=== PATIENT | female | born 1985 | race Caucasian/White ===

== ENCOUNTER 2021-07-20 07:30 | Inpatient (IN) ==
[2021-07-20] MEDS ORDERED: OXYTOCIN 30 UNITS/500 ML BAG IV PRN ×3 (07:46→19:58)
[2021-07-20 08:12] LABS: Hematocrit (blood only) 34.2 % (37-47); Hemoglobin 11.4 g/dL (12.0-16.0); Mean Corpuscular Hgb Conc 33.3 g/dL (32-36); Mean Platelet Volume 10.6 fL (7.4-10.4); Platelet Count 238 K/uL (130-400); RDW Coefficient of Variation 14.5 % (11.5-14.5); RDW Standard Deviation 44.7 fL (36.4-46.3); Red Blood Count 4.07 M/uL (4.2-5.4); White Blood Count 11.21 K/uL (4.8-10.8)
--- NOTE | 2021-07-20 09:27 | History & Physical Report ---
Date of Service July 20, 2021 Assessment & Plan (1) Supervision of normal intrauterine in multigravida: Plan: Admit to L&D. Pitocin. EFM/toco. Labs. Admission and Anticipated Discharge Date Admission Date: July 20, 2021 History of Present Illness Chief Complaint: IOL Primary Care Provider: NO PCP 35yo @ 39 2, IOL for h/o large baby. Cortez bulb placed last night, still in place this AM. +FM, no VB, no LOF. No ctx. complicated by: History of 8lb5oz baby with fracture of arm at delivery Offered primary C/Sec with this - undecided so far. per note written 02/06/21--plans growth us 32wks and possibly 36wks to assess size of baby to help her decide delivery plan SCHEDULED FOR 07/20 IOL same day Allergies Allergy/AdvReac Type Severity Reaction Status Date / Time grass pollen-perennial rye, Allergy Unknown STUFFY NOSE Verified 07/17/21 13:41 standar No Known Drug Allergies Allergy Unknown NO KNOWN Verified 07/17/21 13:41 DRUG ALLERGIES Home Medications Medication Instructions Recorded Confirmed Type doxylamine succinate [Unisom PO 12/16/20 07/17/21 History (doxylamine)] prenat.vits,nolan,uyv-jynu-mkbol 1 tab PO DAILY 12/16/20 07/17/21 History pyridoxine (vitamin B6) [Vitamin PO 12/16/20 07/17/21 History B-6] breast pump #1 ea 06/15/21 07/17/21 Rx Patient History Medical History (Updated 05/14/21 @ 14:56 by Tete Stein MD, FACOG) Bacterial vaginosis Surgical History (Updated 09/08/20 @ 12:42 by Veronica Velazquez MD) 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 History of dilatation and curettage History of salpingo-oophorectomy Left dermoid History of surgery on arm broken arm repair Family History (Updated 09/08/20 @ 12:39 by Veronica Velazquez MD) Grandfather (Paternal) Diabetes Denies family history of Ovarian cancer Prostate cancer Myocardial infarction Breast cancer Colorectal cancer Uterine cancer Social History (Updated 12/16/20 @ 13:57 by Audrey Anand) Smoking Status: Never smoker Hx Alcohol Use: No Hx Substance Use: No Preferred Language: Mongolian Visual Impairment: No Limitations Hearing Ability: Normal Beliefs That Will Affect Care: None marital status: marital status details: [place] (33) [phone] Current Living Situation: Spouse Current Living Situation Comment: lives with fob and daughter, no pets. current occupational status: employed current occupation: facility security officer in [email or web address] Other Information That Helps Us Care for You: No Feels Safe at Home: Yes Safety Concerns: Feels Safe At This Time Dental Care, Regularly: No Physical Activity Frequency: 3-4 Times per Week Seatbelt Use: always Assistive Devices: None Review of Systems All systems reviewed & are unremarkable except as noted in HPI & below Physical Exam Physical Exam: FHT Cat 1 Quentin no ctx SVE: cortez bulb in vagina. Cervix 4/50/-3. Constitutional: WD/WN, vitals as above Respiratory: normal respiratory effort, lungs clear to auscultation no respiratory distress Cardiovascular: Rate/Rhythm: regular rate and regular rhythm Gastrointestinal (Abdomen): Inspection/Auscultation: abdomen normal to inspection Percussion/Palpation: abdomen soft; abdomen nontender Gravid. No s/s chorio or abruption. Skin: no rashes, warm and dry Psychiatric: A+Ox3, euthymic affect Results & Data ([facility]) Vital Signs (Past 12 Hours) Vital Signs Temp Pulse Resp BP 07/20/21 08:29 36.8 C 20 07/20/21 07:48 88 119/68 Coding Level of Care Code None Diagnoses Supervision of normal intrauterine in multigravida Z34.80
[2021-07-20] MEDS: LACTATED RINGER'S 1,000 ML IV PRN ×3 (09:47→18:33)
--- NOTE | 2021-07-20 14:00 | Obstetrical Progress Note ---
Date of Service July 20, 2021 Assessment & Plan (1) Supervision of normal intrauterine in multigravida: Plan: 35 y/o at 39 2/7 wga, eIOL due to hx shoulder resulting in arm fracture VSS Fetus cat 1 Labor - now s/p arom, pit at 11 GBS neg Epidural PRN Admission and Anticipated Discharge Date Admission Date: July 20, 2021 Subjective Ctx becoming somewhat uncomfortable Physical Exam Genitourinary: Manual OB Exam: + cervical dilation 4 cm, + cervical effacement 50%, + station -2 and + amniotic fluid (AROM w/ ?thin mec stained fluid) OB Exam Monitor Tracing: + external FHT monitor used, + external uterine monitor used (q3) and + category I (130/mod/+accel/-decel) Results & Data ([facility]) Vital Signs (Past 12 Hours) Vital Signs Temp Pulse Resp BP 07/20/21 13:49 97.9 F 18 07/20/21 13:48 82 125/75 07/20/21 12:38 88 115/76 07/20/21 11:12 81 112/64 07/20/21 09:52 86 112/66 07/20/21 08:29 98.2 F 20 07/20/21 07:48 88 119/68 PG Care Time/CCT Total # of Minutes Spent Total Time Spent with Patient: Total time spent is greater than 50% in coordination of care (as documented) at patient's floor/unit and/or counseling patient: Coding Level of Care Code None Diagnoses Supervision of normal intrauterine in multigravida Z34.80
[2021-07-20] MEDS ORDERED: ePHEDrine sulfate 50 MG/ML AMP ONE (14:29)
[2021-07-20] MEDS ORDERED: BUPIVACAINE 0.25% 30 ML VIAL ONE (14:29)
[2021-07-20] MEDS ORDERED: SODIUM CHLORIDE 0.9% INJ 10 ML VIAL ONE (14:29)
[2021-07-20] MEDS ORDERED: fentaNYL 2MCG/ML ROPIVACAINE 1.25MG/ML 100 ML BAG EPI ONE (14:30)
[2021-07-20] MEDS ORDERED: fentaNYL citrate 100 MCG/2 ML VIAL ONE (14:30)
--- NOTE | 2021-07-20 14:40 | Anesthesiology Consultation ---
Date of Service July 20, 2021 Assessment & Plan (1) Encounter for pre-operative examination: Chart Review Chart Review: Acceptable Risk for Labor Epidural History Surgery Operation Date: 07/20/21 07:30 Proposed Procedures p Section in LD - Veronica Velazquez MD Height/Weight Height: 5 ft 3.5 in Weight: 99.79 kg Allergies Allergy/AdvReac Type Severity Reaction Status Date / Time grass pollen-perennial rye, Allergy Unknown STUFFY NOSE Verified 07/17/21 13:41 standar No Known Drug Allergies Allergy Unknown NO KNOWN Verified 07/17/21 13:41 DRUG ALLERGIES Medications Home Medications Medication Instructions Recorded Confirmed Last Taken breast pump #1 ea 06/15/21 07/17/21 Unknown prenat.vits,nolan,gon-ujma-ybztg 1 tab PO DAILY 07/20/21 07/20/21 07/19/21 08:00 Active Medications Generic Name Dose Route Start Last Admin Trade Name Freq PRN Reason Stop Dose Admin Oxytocin 30 units in 500 mls @ 11 mls/hr 07/20/21 07:46 07/20/21 13:15 Pitocin IV 07/22/21 07:45 0.66 units/hr .Q24H PRN 11 mls/hr Labor Induction/Augmentation Titration Protocol 0.66 UNITS/HR Lactated Ringer's 1,000 mls @ 125 mls/hr 07/20/21 07:46 07/20/21 09:47 Lr IV 07/22/21 07:45 125 mls/hr .Q8H PRN Administration L&D Protocol Protocol Past Medical History Medical History Bacterial vaginosis Past Family History Family History Grandfather (Paternal) Diabetes Denies family history of Ovarian cancer Prostate cancer Myocardial infarction Breast cancer Colorectal cancer Uterine cancer Past Surgical History Surgical History 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
[2021-07-20] MEDS ORDERED: ePHEDrine sulfate 50 MG/ML AMP IV PRN (15:53)
[2021-07-20] MEDS ORDERED: ONDANSETRON INJ 2 MG/ML 2 ML VIAL IV PRN (15:53)
[2021-07-20] MEDS ORDERED: fentaNYL 2MCG/ML ROPIVACAINE 1.25MG/ML 100 ML BAG EPI PRN (15:53)
[2021-07-20] MEDS ORDERED: NALOXONE HCL 0.4 MG/1 ML VIAL/CARP IV PRN (15:53)
[2021-07-20] MEDS ORDERED: NALOXONE HCL 1 MG in SODIUM CHLORIDE 0.9% 1000ML 1,000 ML IV PRN (15:53)
--- NOTE | 2021-07-20 17:05 | Labor Progress Brief Note ---
Date of Service July 20, 2021 Subjective Comfortable w/ epidural Assessment & Plan (1) Supervision of normal intrauterine in multigravida: Plan: 35 y/o at 39 2/7 wga, eIOL due to hx shoulder resulting in arm fracture VSS Fetus cat 1 Labor - Continue augmentation, some progression noted GBS neg Epidural in place Admission and Anticipated Discharge Date Admission Date: July 20, 2021 Physical Exam Genitourinary: Manual OB Exam: + cervical dilation 4 cm, + cervical effacement 70% and + station -1 OB Exam Monitor Tracing: + external FHT monitor used, + external uterine monitor used (q3) and + category I (135/mod/+accel/-decel) Results & Data ([facility]) Vital Signs (Past 12 Hours) Vital Signs Temp Pulse Resp BP Pulse Ox 07/20/21 16:58 77 100 07/20/21 16:55 75 112/60 07/20/21 16:53 77 99 07/20/21 16:48 79 97 07/20/21 16:43 80 98 07/20/21 16:40 75 110/60 07/20/21 16:38 86 100 07/20/21 16:33 78 98 07/20/21 16:28 79 98 07/20/21 16:26 76 112/59 L 07/20/21 16:23 83 98 07/20/21 16:18 83 96 07/20/21 16:13 80 96 07/20/21 16:09 78 110/61 07/20/21 16:08 82 96 07/20/21 16:03 82 106/61 97 07/20/21 16:01 77 104/61 07/20/21 15:59 78 102/60 07/20/21 15:58 83 96 07/20/21 15:57 78 107/57 L 07/20/21 15:55 81 109/63 07/20/21 15:53 79 116/66 98 07/20/21 15:51 72 116/67 07/20/21 15:49 73 118/63 07/20/21 15:47 76 128/70 98 07/20/21 15:42 77 98 07/20/21 15:37 76 93 07/20/21 15:35 80 91 07/20/21 15:32 82 99 08/23/21 15:16 97.7 F 68 20 104/63 07/20/21 13:49 97.9 F 18 07/20/21 13:48 82 125/75 07/20/21 12:38 88 115/76 07/20/21 11:12 81 112/64 07/20/21 09:52 86 112/66 07/20/21 08:29 98.2 F 20 07/20/21 07:48 88 119/68 Coding Level of Care Code None Diagnoses Supervision of normal intrauterine in multigravida Z34.80
--- NOTE | 2021-07-20 19:54 | Delivery Summary ---
Vaginal Delivery Summary Date of Service July 20, [address] [facility] PREOPERATIVE DIAGNOSIS: 1. Single intrauterine at 39 2/7 wga 2. Elective induction of labor 3. History of shoulder dystocia and arm fracture POSTOPERATIVE DIAGNOSIS: 1. Single intrauterine at 39 2/7 wga 2. Elective induction of labor 3. History of shoulder dystocia and arm fracture 4. Delivered PROCEDURE: 1. Normal spontaneous vaginal delivery. SURGEON: Veronica Velazquez MD ANESTHESIA: Epidural. ESTIMATED BLOOD LOSS: 300 mL FLUIDS: Continuous LR. URINE OUTPUT: None. COMPLICATIONS: None. CONDITION: Stable. INDICATIONS: 35 y/o at 39 2/7 wga presented for elective IOL due to hx of shoulder dystocia and resultant arm fracture with last delivery. She had been offered a primary delivery due to this history and kendall jc opted for elective induction. She received a cortez bulb last evening which was removed this morning and found to be 4cm. She was started on pitocin and underwent artificial rupture of membranes. She received an epidural and progressed to complete and desired to push. FINDINGS: A viable female with Apgars of 8 and 9 at 1 and 5 minutes respectively. SPECIMEN: Cord blood OPERATIVE REPORT: The patient progressed to 10 cm, 100% effaced and +2 station, pushed over intact perineum with anesthesia to deliver a viable female infant, Apgars as above. Head of delivered in BEATA position. No nuchal cord was present. Body and shoulders were delivered without difficulty. was delivered to maternal abdomen and nursing staff. Delayed cord clamping was performed for 60 seconds. Cord was clamped and cut. Cord blood was obtained. Placenta delivered spontaneously intact with 3-vessel cord. IV oxytocin and fundal massage were given for excellent hemostasis. Vagina, cervix, perineum, and placenta were inspected. A hemostatic first degree laceration was noted and not needed to be repaired. Sponge and needle counts correct x2. No sponges were left behind. Mother and stable in immediate period. [facility] [place] Vaginal Delivery Codes: 21661 global code for the antepartum, delivery, and post- Delivery Type Details: [facility]
[2021-07-20] MEDS ORDERED: SUPERCREAM 0.870% 15 GM JAR EXT PRN (19:58)
[2021-07-20] MEDS ORDERED: ACETAMINOPHEN 325 MG TAB PO PRN (19:58)
[2021-07-20] MEDS ORDERED: bisacodyL 10 MG SUPP PR PRN (19:58)
[2021-07-20] MEDS ORDERED: HYDROCORTISONE ACETATE 25 MG SUPP PR PRN (19:58)
[2021-07-20] MEDS ORDERED: BENZOCAINE 20% AER SPR 82.5 GM CAN EXT PRN (19:58)
[2021-07-20] MEDS ORDERED: DIPHTHERIA/TETANUS/PERTUSSIS 0.5 ML SYR/VIAL IM ONE (19:58)
--- NOTE | 2021-07-20 22:01 | Anesthesia Procedure Note ---
Date of Service July 20, 2021 Anesthesia Post Epidural Note Vital Signs Vital Signs: Temp Pulse Resp BP Pulse Ox 36.5 C 99 H 18 134/75 98 07/20/21 16:58 07/20/21 21:53 07/20/21 21:21 07/20/21 21:50 07/20/21 21:53 Pain Intensity Lower Abdomen: Pain Intensity: 8 Notes Mental Status: alert / awake / arousable and participated in evaluation Nausea / Vomiting: adequately controlled Pain: adequately controlled Airway Patency, RR, SpO2: stable & adequate BP & HR: stable & adequate Hydration State: stable & adequate Neuraxial Anesthesia: was administered and sensory block is resolving Anesthetic Complications: no major complications apparent Epidural: Removed without complications and With tip intact
[2021-07-21] MEDS: IBUPROFEN 600 MG TAB PO PRN ×3 (00:40→15:51)
[2021-07-21] MEDS: DOCUSATE SODIUM 100 MG CAP PO SCH ×2 (00:41→07:21)
--- NOTE | 2021-07-21 05:46 | Obstetrical Progress Note ---
Date of Service <Abhishek Traylorpiagarry - Last Filed: 07/21/21 07:08> July 21, 2021 Assessment & Plan <Abhishek Sandhu DO - Last Filed: 07/21/21 07:08> (1) Encounter for care and examination after delivery: PPD1 - O+, GBS-, RI. - Vitals WNL. - Encouraged . - Discussed discharge with patient. Patient is ready to leave when baby is cleared by pediatrics. Will either go later tonight or tomorrow morning. <Veronica Velazquez MD - Last Filed: 07/21/21 07:28> (1) Encounter for care and examination after delivery: Subjective <Abhishek Ruizcrista - Last Filed: 07/21/21 07:08> Ambulation: ambulating normally Voiding: no voiding problems Passing Gas:: Yes Diet Tolerance:: regular diet Lochia:: Small Feeding Type:: breast feeding Current Pain Level(1-10): 0 Review of Systems Denies fever, chills, sweats Denies shortness of breath, difficulty breathing, chest pain, palpitations, chest pressure. Denies breast pain. Denies dysuria. Denies headache or changes in vision Physical Exam <Abhishek Sandhu DO - Last Filed: 07/21/21 07:08> General: Alert, oriented. No acute distress. Cardiac: Regular rate and rhythm, no murmurs/rubs/gallops. Respiratory: Clear to auscultation bilaterally a/p, no wheezes/rales/rhonchi. No increased work of breathing. Symmetrical chest rise. No respiratory distress. Abdomen: Soft, nontender, nondistended. Bowel sounds present. Uterus: Uterine fundus firm, palpable 1 cm below umbilicus. Lower Extremities: No lower extremity edema or swelling. No deep calf pain. Tashia's negative bilaterally Results & Data ([facility]) <Abhishek Ruizmonygarry - Last Filed: 07/21/21 07:08> Vital Signs (Past 12 Hours) Vital Signs Temp Pulse Pulse Resp BP BP Pulse Ox 07/21/21 03:30 36.9 C 92 H 16 118/74 07/20/21 23:00 37.0 C 96 H 16 127/79 98 07/20/21 21:53 99 H 98 07/20/21 21:50 95 H 18 134/75 07/20/21 21:48 93 H 97 07/20/21 21:43 98 H 97 07/20/21 21:38 99 H 94 07/20/21 21:36 102 H 146/83 H 07/20/21 21:33 103 H 87 L 07/20/21 21:28 102 H 94 07/20/21 21:23 95 H 97 07/20/21 21:21 110 H 18 127/80 84 L 07/20/21 21:18 106 H 97 07/20/21 21:13 106 H 100 07/20/21 21:08 101 H 99 07/20/21 21:06 109 H 139/74 07/20/21 21:03 100 H 97 07/20/21 20:58 98 H 96 07/20/21 20:57 102 H 142/82 H 07/20/21 20:53 88 97 07/20/21 20:50 18 07/20/21 20:48 90 98 07/20/21 20:43 92 H 96 07/20/21 20:38 89 98 07/20/21 20:35 94 H 18 126/75 07/20/21 20:33 98 H 98 07/20/21 20:28 95 H 96 07/20/21 20:23 101 H 97 07/20/21 20:21 106 H 18 132/77 07/20/21 20:18 94 H 90 07/20/21 20:13 94 H 99 07/20/21 20:08 95 H 98 07/20/21 20:05 97 H 18 147/75 H 07/20/21 20:03 97 H 99 07/20/21 19:58 99 H 99 07/20/21 19:53 98 H 98 07/20/21 19:50 96 H 18 127/68 07/20/21 19:48 92 H 98 07/20/21 19:43 94 H 97 07/20/21 19:40 99 H 140/71 07/20/21 19:38 92 H 97 07/20/21 19:35 18 07/20/21 19:33 116 H 100 07/20/21 19:28 89 100 07/20/21 19:23 89 98 07/20/21 19:18 82 98 08/23/21 19:13 80 100 07/20/21 19:10 79 138/70 07/20/21 19:08 82 100 07/20/21 19:03 84 100 07/20/21 18:58 86 100 07/20/21 18:56 82 132/70 07/20/21 18:53 84 99 07/20/21 18:48 87 100 07/20/21 18:43 85 99 07/20/21 18:41 87 130/82 07/20/21 18:38 79 97 07/20/21 18:33 83 99 07/20/21 18:28 80 100 07/20/21 18:25 85 120/70 07/20/21 18:23 82 99 07/20/21 18:18 74 99 07/20/21 18:13 82 100 07/20/21 18:11 77 122/67 07/20/21 18:08 78 100 07/20/21 18:03 79 100 07/20/21 17:58 84 99 07/20/21 17:54 77 127/72 07/20/21 17:53 87 98 07/20/21 17:48 77 97 <Veronica Velazquez MD - Last Filed: 07/21/21 07:28> Co-Signing Physician Notes Resident Physician Supervision Note: I interviewed and examined the patient. Discussed with Dr. Sandhu and agree with findings and plan as documented in the note. Any exceptions or clarifications are listed here: PP1 doing well. VSS, exam benign and wnl. Desires d/c home at 24 hours, aware won't be until later this evening and ok with it. I think ok for d/c after 24 hours from ob standpoint. Had some mild range BPs shortly after delivery, will continue to monitor Documented By: Veronica Velazquez MD Resident Activity Tracking <Abhishek Sandhu DO - Last Filed: 07/21/21 07:08> Resident Involvement: Resident Care Provided Care Provided: OB Delivery
[2021-07-21] MEDS ORDERED: PRENATAL VITAMIN 1 TAB PO SCH (08:00)
[2021-07-21] MEDS ORDERED: bisacodyL 5 MG TABEC PO SCH (20:00)
== END 2021-07-21 20:30 | disposition home or self-care (01) | DRG 807 ==
LOC: EDSTATUS 07:30 → 4S1 07:36 → 4S2 22:26